=== PATIENT | male | born 1995 | race Caucasian/White ===

== ENCOUNTER 2020-03-09 04:21 | Emergency (ER) | payer SELFPAY ==
[2020-03-09 04:22] VITALS: BP 104/51; PULSE 103; RESP 18; TEMP 36.9; O2SAT 98; BMI 20.6
--- NOTE | 2020-03-09 04:27 | ED.VIS.GEN ---
History of Present Illness Chief Complaint: Seizure Informant: Patient, Family Limited by: Intoxicated Onset: Today Context: Sudden Onset Timing: Continuous Current Severity: Moderate Maximum Severity: Moderate Narrative: Patient is a 24-year-old male with history of bipolar disorder, remote seizure disorder, and alcohol abuse that presents to the emergency department intoxicated with questionable seizure activity. The patient was drinking tonight. He got very aggressive with family. Squad was called. On squad arrival, the patient was reportedly postictal and combative. They try to attempt IV placement, but the patient removed it. He was given 5 mg of IM Versed in route. On arrival, the patient is postictal. I did gather history from his father. He states that he has had alcohol induced seizures in the past. He has not on any antiepileptic medication. He is on medications for his behavioral disturbance. He states he has not been increasingly depressed. He is otherwise been in his normal state of health. Prior similar symptoms: No Recent Illness/Hospitalization: No Past Medical History - Allergies and Home Meds Allergies/Adverse Reactions: Allergies No Known Allergies Allergy (Verified 03/09/20 04:25) Primary Care Physician: Khurram Cornell DO [Primary Care Provider] - Prior records reviewed: Yes Past Medical History: - - Bipolar disorder, seizure disorder, traumatic brain injury Smoking Status: Current every day smoker Review of Systems ROS: Unable to Obtain Physical Exam Vital Signs/Narrative: Vital Signs Temp Pulse Resp BP Pulse Ox 03/09/20 04:22 98.4 F 103 H 18 104/51 L 98 Inital Vital Signs reviewed: Yes General: Well nourished, Well developed, No Acute Distress Head: Normocephalic, Atraumatic Eyes: Perrl ENT: Moist mucous membranes, No rhinorrhea Neck: Supple, Nontender, No lymphadenopathy Cardiovascular: Regular rate, Regular rhythm, No murmurs Respiratory: No distress, CTA bilaterally Abdomen: Soft, Nontender, Nondistended Extremities: Nontender Skin: Normal color Neurological: Inattentive Diagnostic/Tx/Re-eval - Medical Decision Making The patient presents to the emergency department by squad due to reported seizure. I did discuss this with his father. He states that sometimes, when he drinks too much he will have seizure-like activity. He also states that this may be because of his behavior. The patient has not been on antiepileptics in some time. IV was established. The patient was placed on seizure precautions. He is now sleeping without issue. Screening labs were obtained. He does not have a significantly elevated anion gap. His labs are otherwise unremarkable. Alcohol was elevated. The patient will be observed until clinically sober and be reevaluated. As long as there is no change in his clinical condition, I do feel that he would likely be able to be discharged. Father is comfortable with this plan of care. Impression 1. Alcohol intoxication ED Disposition - Plan for ED Patient: Instructions: ED INTOXICATION Alcohol Referrals: Khurram Cornell DO [Primary Care Provider] -
[2020-03-09] MEDS: 0.9% Normal Saline 1,000 ML 1000 ML IV (04:33)
[2020-03-09 04:39] LABS: Absolute Lymphocyte Count 2.68 X10^3/uL (0.83-4.51); Absolute Neutrophil Count 9.9 X10^3/uL (2.0-7.7); Basophil# 0.05 X10^3/uL; Basophil% 0.4 % (0-1); Eosinophil# 0.12 X10^3/uL; Eosinophils% 0.9 % (0-5); Hematocrit 44.4 % (40-54); Hemoglobin 15.4 g/dL (13.0-16.5); Lymphocyte # 2.68 X10^3/ul (4.0); Lymphocyte % 19.4 % (19-41); Mean Corp Hgb Conc 34.7 g/dL (32-36); Mean Corpuscular Hgb 30.7 pg (27.0-32.0); Mean Corpuscular Volume 88.6 fL (80-94); Mean Platelet Vol. 9.7 fl (6.2-12.0); Monocyte# 1.03 X10^3/uL; Monocyte% 7.5 % (0-10); NRBC Flagged by Analyzer 0 % (0-5); Neutrophil # 9.85 X10^3/uL (2.7-7.7); Neutrophil % 71.2 % (47-70); Platelet Count 305 K/mm3 (150-450); RBC Distribution Width CV 11.9 % (11.6-14.6); RBC Distribution Width SD 37.9 fl (35.1-43.9); Red Blood Count 5.01 M/mm3 (4.6-6.2); White Blood Count 13.8 K/mm3 (4.4-11.0)
[2020-03-09 04:58] LABS: ALB/GLOB Ratio 1.2 RATIO (0.9-2.4); AST(SGOT) 19 U/L (15-37); Alanine Aminotransfer ALT/SGPT 23 U/L (16-61); Albumin, Serum 4.4 g/dL (3.2-5.0); Alkaline Phosphatase 79 U/L (45-117); Anion Gap 13 (5-15); BUN 18 mg/dL (7-18); BUN/Creat Ratio 17.6 RATIO (10-20); Calcium,Total 8.7 mg/dL (8.5-10.1); Chloride 108 mmol/L (98-107); Creatinine, Serum 1.02 mg/dL (0.70-1.30); EST Glomerular Filtration Rate 97 mL/min (>60); Est Glom Filt Rate - Afr Amer 117 mL/min (>60); Estimated Creatinine Clearance 104.76 ml/min; Globulin 3.6 g/dL (2.2-4.2); Glucose 84 mg/dL (74-106); Potassium 3.5 mmol/L (3.5-5.1); Sodium Level 140 mmol/L (136-145)
[2020-03-09 05:21] VITALS: BP 92/49; PULSE 79; RESP 14; O2SAT 99
[2020-03-09 06:00] VITALS: BP 103/76; PULSE 74; RESP 14; O2SAT 94
[2020-03-09 07:19] VITALS: BP 95/56; PULSE 79; RESP 18; O2SAT 99
[2020-03-09 08:21] VITALS: BP 103/60; PULSE 71; RESP 18; O2SAT 99
== END 2020-03-09 08:22 | disposition home or self-care (01) ==
PROVIDERS: Emergency Provider Emergency Medicine; PCP Family Medicine
DX: F10.129 Alcohol abuse with intoxication, unspecified (principal); F17.200 Nicotine dependence, unspecified, uncomplicated
CPT/HCPCS: 80053; 80320; 85025; 96360; 99285; J7030; A4216; G0480